=== PATIENT | female | born 1975 | race Caucasian/White ===

== ENCOUNTER → 2018-06-01 | Emergency (ER) | payer OTHER ==
[~2018-06-01] VITALS: Ht 170.2 cm; Wt 104.8 kg
[~2018-06-01] MED LIST: HEMATOGEN FORT1 EACH PO; K-TAB ER20 MEQ PO; KETO10TA2 PO
== END | disposition home or self-care (01) ==
LOC: ER 22:17
DX: R06.02 Shortness of breath (principal); D64.9 Anemia, unspecified